=== PATIENT | male | born 1960 | race Caucasian/White ===

== ENCOUNTER 2019-02-07 07:31 | Day surgery (SDC) | payer BC ==
[2019-02-01 15:45] VITALS: BMI 25.8
[2019-02-07] MEDS ORDERED: PROPOFOL 20 ML ONE (08:48)
[2019-02-07] MEDS ORDERED: LIDOCAINE HCL/PF 2% SDV 5ML VIAL ONE (08:49)
[2019-02-07 10:10] VITALS: PULSE 69; TEMP 97.7
[2019-02-07 10:35] VITALS: BP 100/53
--- NOTE | 2019-02-11 12:45 | PATH ---
Surgical Pathology Report Patient Name: SUSAN PADILLA [facility] Rec. #: [id number] /Age/Gender: 1960 (Age: 58) / M Account: [id number] Location: [facility] Taken: 02/07/2019 Received: 02/07/2019 Reported: 02/11/2019 Physicians: Garland Mccrary M.D. Specimen(s) Received ANTRUM Clinical History GERD, history of polyps Postoperative diagnosis: gastritis Final Diagnosis GASTRIC ANTRUM, BIOPSY: MILD CHRONIC GASTRITIS. IMMUNOSTAIN IS NEGATIVE FOR H. PYLORI ORGANISMS. Electronically Signed Joann Chamorro M.D. Gross Description Received in formalin, labeled "biopsy gastric antrum" are 2 kaur, irregular portions of soft tissue measuring 0.5 and 0.6 cm. in greatest dimension. The specimens are submitted in toto in one cassette. /02/07/201902/07/2019
== END 2019-02-07 10:45 | disposition home or self-care (01) ==
LOC: FASU-ENDO 07:31
PROVIDERS: ATTEND Internal Medicine Gastroenterology
PROC: 0DB78ZX Excision of Stomach, Pylorus, Via Natural or Artificial Opening Endoscopic, Diagnostic (ICD-10-PCS; 2019-02-07)
PROC: 0DJD8ZZ Inspection of Lower Intestinal Tract, Via Natural or Artificial Opening Endoscopic (ICD-10-PCS; principal; 2019-02-07 09:10)
DX: Z86.010 Personal history of colon polyps (principal); K29.50 Unspecified chronic gastritis without bleeding; R12 Heartburn
CPT/HCPCS: 88305-TC; 88342-TC

== ENCOUNTER 2024-01-15 08:08 | Day surgery (SDC) | payer MEDICARE ==
[2024-01-10 16:03] VITALS: BMI 25.2
[2024-01-15 11:09] VITALS: PULSE 76; RESP 16; TEMP 97.3
[2024-01-15 11:26] VITALS: BP 122/75
== END 2024-01-15 11:32 | disposition home or self-care (01) ==
LOC: FASU-ENDO 08:08
PROVIDERS: ATTEND Internal Medicine Gastroenterology
PROC: 0DBL8ZX Excision of Transverse Colon, Via Natural or Artificial Opening Endoscopic, Diagnostic (ICD-10-PCS; 2024-01-15)
PROC: 0DB98ZX Excision of Duodenum, Via Natural or Artificial Opening Endoscopic, Diagnostic (ICD-10-PCS; 2024-01-15)
PROC: 0DB68ZX Excision of Stomach, Via Natural or Artificial Opening Endoscopic, Diagnostic (ICD-10-PCS; 2024-01-15)
PROC: 0DBK8ZX Excision of Ascending Colon, Via Natural or Artificial Opening Endoscopic, Diagnostic (ICD-10-PCS; principal; 2024-01-15 10:01)
DX: Z12.11 Encounter for screening for malignant neoplasm of colon (principal); D12.2 Benign neoplasm of ascending colon; K64.1 Second degree hemorrhoids; Z86.010 Personal history of colon polyps; K29.50 Unspecified chronic gastritis without bleeding; K29.80 Duodenitis without bleeding; R12 Heartburn
CPT/HCPCS: 88305-TC; 88342-TC